=== PATIENT | female | born 1990 | race Native Hawaiian/Other Pacific Islander ===

== ENCOUNTER 2016-07-22 13:38 | Emergency (ER) | payer OTHER ==
[~2016-07-22] VITALS: Ht 167.6 cm; Wt 56.7 kg
[2016-07-22 13:45] VITALS: TEMP 98.2
[2016-07-22 14:37] VITALS: BP 128/82
== END 2016-07-22 14:37 | disposition home or self-care (01) ==
LOC: ED 13:38
DX: S13.9XXA Sprain of joints and ligaments of unspecified parts of neck, initial encounter (principal); S00.03XA Contusion of scalp, initial encounter; V53.5XXA Driver of pick-up truck or van injured in collision with car, pick-up truck or van in traffic accident, initial encounter
CPT/HCPCS: 99282

== ENCOUNTER 2017-04-14 11:17 | Emergency (ER) | payer OTHER ==
[~2017-04-14] VITALS: Ht 167.6 cm; Wt 54.4 kg
[2017-04-14 11:25] VITALS: BP 112/64; TEMP 97.4
== END 2017-04-14 12:22 | disposition home or self-care (01) ==
LOC: ED 11:17
DX: R42 Dizziness and giddiness (principal)
CPT/HCPCS: 99281

== ENCOUNTER 2017-05-29 16:53 | Emergency (ER) | payer OTHER ==
[~2017-05-29] VITALS: Ht 167.6 cm; Wt 56.7 kg
[2017-05-29] MEDS ORDERED: ATEN25TA21 PO (17:06)
[2017-05-29 19:45] VITALS: BP 123/67; TEMP 97.7
== END 2017-05-29 19:46 | disposition home or self-care (01) ==
LOC: ED 16:53
DX: R06.4 Hyperventilation (principal); R07.89 Other chest pain
CPT/HCPCS: 36415; 36600; 80307; 82805; 93005; 96372; 99283; J2060

== ENCOUNTER 2017-06-09 08:55 | Outpatient (CLI) | payer OTHER ==
[~2017-06-09 08:55] MED LIST: ATEN25TA21 PO
== END 2017-06-09 22:53 | disposition home or self-care (01) ==
LOC: RESP 08:55
DX: R00.0 Tachycardia, unspecified (principal)
CPT/HCPCS: 93306

== ENCOUNTER 2017-06-19 15:25 | Emergency (ER) | payer OTHER ==
[~2017-06-19] VITALS: Ht 167.6 cm; Wt 56.7 kg
[2017-06-19 15:35] VITALS: TEMP 97.8
[2017-06-19 16:27] LABS: PLATELET COUNT 308 K/uL (152-353)
[2017-06-19 17:59] VITALS: BP 97/54
== END 2017-06-19 17:58 | disposition home or self-care (01) ==
LOC: ED 15:25
DX: L50.9 Urticaria, unspecified (principal); R21 Rash and other nonspecific skin eruption; T63.441A Toxic effect of venom of bees, accidental (unintentional), initial encounter; Y92.89 Other specified places as the place of occurrence of the external cause
CPT/HCPCS: 36415; 85027; 85651; 96374; 99284; J2930

== ENCOUNTER 2018-10-19 15:44 | Emergency (ER) | payer OTHER ==
[~2018-10-19] VITALS: Ht 170.2 cm; Wt 63.0 kg
[2018-10-19 15:50] VITALS: TEMP 98.9
[2018-10-19] MEDS ORDERED: AMIT25TA22 PO (16:04)
[2018-10-19 17:45] VITALS: BP 101/52
== END 2018-10-19 17:45 | disposition home or self-care (01) ==
LOC: ED 15:44
PROC: 2W3RX1Z Immobilization of Left Lower Leg using Splint (ICD-10-PCS; principal; 2018-10-19)
DX: S93.402A Sprain of unspecified ligament of left ankle, initial encounter (principal); X50.1XXA Overexertion from prolonged static or awkward postures, initial encounter; Y92.69 Other specified industrial and construction area as the place of occurrence of the external cause
CPT/HCPCS: 96372; 99283; J1885

== ENCOUNTER 2020-06-22 11:42 | Outpatient (CLI) | payer OTHER ==
[~2020-06-22 11:42] MED LIST changes: +AMIT25TA22 PO
== END 2020-06-22 19:53 | disposition home or self-care (01) ==
LOC: NM 11:42
PROVIDERS: ATTEND Registered Nurse
DX: R10.11 Right upper quadrant pain (principal)
CPT/HCPCS: A9537

== ENCOUNTER 2021-02-20 15:31 | Emergency (ER) | payer OTHER ==
[~2021-02-20] VITALS: Ht 170.2 cm; Wt 56.7 kg
[2021-02-20 15:58] VITALS: TEMP 97.3
[2021-02-20 17:02] VITALS: BP 108/62
== END 2021-02-20 17:04 | disposition home or self-care (01) ==
LOC: ED 15:31
DX: S60.412A Abrasion of right middle finger, initial encounter (principal); W23.0XXA Caught, crushed, jammed, or pinched between moving objects, initial encounter; Y92.89 Other specified places as the place of occurrence of the external cause
CPT/HCPCS: 99281